=== PATIENT | female | born 1945 | race Caucasian/White ===

== ENCOUNTER → 2016-07-16 | Day surgery (SDC) | payer OTHER, MEDICARE ==
[~2016-07-16] MED LIST: LIDOCAINE HCL/PF 2% SDV 5ML VIAL ONE; PROPOFOL 20 ML ONE
[2016-07-16 08:44] VITALS: BMI 39.6
[2016-07-16 09:38] VITALS: TEMP 98.1
[2016-07-16 09:58] VITALS: PULSE 75
[2016-07-16 11:37] VITALS: BP 132/59
--- NOTE | 2016-07-17 11:30 | PATH ---
Surgical Pathology Report Patient Name: CLAUDE SCHRAD[facility]. Rec. #: [id number] /Age/Gender: 1945 (Age: 70) / F Account: [id number] Location: U-ENDOSCOPY Taken: 07/16/2016 Received: 07/16/2016 Reported: 07/17/2016 Physicians: Marita Means M.D. Specimen(s) Received A: BX RECTAL POLYP B: BX CECUM C: BX CECUM POLYP D: BX RT COLON POLYP Clinical History History of colon polyp, constipation Diverticulosis, polyps Final Diagnosis A. COLON, RECTAL POLYP, BIOPSY: HYPERPLASTIC POLYP. B. COLON, CECUM, BIOPSY: COLONIC MUCOSA WITH NO PATHOLOGIC CHANGES. NO ACTIVE COLITIS, ARCHITECTURAL DISTORTION, GRANULOMATA, OR DYSPLASIA IDENTIFIED. NO MICROSCOPIC COLITIS IDENTIFIED (NO LYMPHOCYTIC OR COLLAGENOUS COLITIS IDENTIFIED). C. COLON, CECAL POLYP, BIOPSY: COLONIC MUCOSA WITH SUBMUCOSAL ADIPOSE TISSUE SUGGESTIVE OF LIPOMA. NO ADENOMATOUS OR HYPERPLASTIC CHANGE IDENTIFIED. D. COLON, RIGHT, BIOPSY: COLONIC MUCOSA WITH SMALL LYMPHOID AGGREGATES WITHIN SUBMUCOSA. NO ADENOMATOUS OR HYPERPLASTIC CHANGE IDENTIFIED. Electronically Signed Pedro Gonzalez M.D. Gross Description A. Received in formalin, labeled "biopsy rectal polyp" are 5 yoon, irregular portions of soft tissue ranging from 0.1-0.4 cm. in greatest dimension. The specimens are submitted in toto in one cassette. B. Received in formalin, labeled "biopsy cecum" are 2 yoon, irregular portions of soft tissue measuring 0.1 and 0.3 cm. in greatest dimension. The specimens are submitted in toto in one cassette. C. Received in formalin, labeled "biopsy cecal polyp" is a yoon, irregular portion of soft tissue measuring 0.4 cm. in greatest dimension. The specimen is submitted in toto in one cassette. D. Received in formalin, labeled "biopsy right colon polyp" are 3 yoon, irregular portions of soft tissue ranging from 0.2-0.4 cm. in greatest dimension. The specimens are submitted in toto in one cassette. 07/16/201607/16/2016
== END | disposition home or self-care (01) ==
LOC: JASU-ENDO 07:43
PROVIDERS: ATTEND Internal Medicine Gastroenterology
PROC: 0DBP8ZX Excision of Rectum, Via Natural or Artificial Opening Endoscopic, Diagnostic (ICD-10-PCS; 2016-07-16)
PROC: 0DBK8ZX Excision of Ascending Colon, Via Natural or Artificial Opening Endoscopic, Diagnostic (ICD-10-PCS; 2016-07-16)
PROC: 0DBH8ZX Excision of Cecum, Via Natural or Artificial Opening Endoscopic, Diagnostic (ICD-10-PCS; principal; 2016-07-16 09:00)
DX: D12.2 Benign neoplasm of ascending colon (principal); D12.0 Benign neoplasm of cecum; K62.1 Rectal polyp; R19.4 Change in bowel habit; Z86.010 Personal history of colon polyps; K57.30 Diverticulosis of large intestine without perforation or abscess without bleeding; K64.8 Other hemorrhoids
CPT/HCPCS: 87045; 87046; 87177; 87209; 87328; 87329; 88305-TC

== ENCOUNTER 2023-08-16 04:16 | Day surgery (SDC) | payer OTHER, MEDICARE ==
[2023-08-09 15:00] VITALS: BMI 37.8
[2023-08-16] MEDS ORDERED: DEXAMETHASONE SOD PHOSPHATE 10 MG/1 ML VIAL ONE ×2 (07:10→11:04)
[2023-08-16] MEDS ORDERED: LIDOCAINE HCL/PF 1% SDV 5ML VIAL ONE ×2 (07:10→11:04)
[2023-08-16] MEDS ORDERED: ACETAMINOPHEN 500 MG TABLET (FP) PO PRN (09:43)
[2023-08-16 10:37] VITALS: RESP 18
[2023-08-16] MEDS: LIDOCAINE 1% P/F 10 MG/ML VIAL INF ONE ×2 (11:08)
[2023-08-16] MEDS: IOHEXOL 180 MG/1 ML ML IJ ONE ×3 (11:10)
[2023-08-16] MEDS: DEXAMETHASONE SOD PHOSPHATE 10 MG/1 ML VIAL IVPUSH ONE ×3 (11:11)
[2023-08-16 11:25] VITALS: BP 133/67; PULSE 68; TEMP 98
== END 2023-08-16 13:44 | disposition home or self-care (01) ==
LOC: JASU-SURG 04:16
PROVIDERS: ATTEND Pain Medicine Pain Medicine
PROC: 3E0R3BZ Introduction of Anesthetic Agent into Spinal Canal, Percutaneous Approach (ICD-10-PCS; 2023-08-16)
PROC: 3E0R33Z Introduction of Anti-inflammatory into Spinal Canal, Percutaneous Approach (ICD-10-PCS; principal; 2023-08-16 12:15)
DX: M48.061 Spinal stenosis, lumbar region without neurogenic claudication (principal); M54.16 Radiculopathy, lumbar region
CPT/HCPCS: 76000-TC-FY; J1100